=== PATIENT | male | born 1970 | race Caucasian/White ===

== ENCOUNTER 2019-02-18 06:23 | Inpatient (IN) | payer MEDICARE, MEDICAID ==
[~2019-02-18] VITALS: Ht 165.1 cm; Wt 53.7 kg
[2019-02-18] MEDS ORDERED: MVI, ADULT NO.4 WITH VIT K 10 ML, FOLIC ACID SYRINGE for ER 1 MG, THIAMINE INJ 100 MG i... IV ONE ×4 (06:45)
[2019-02-18] MEDS ORDERED: THIAMINE 200 MG/2 ML VIAL. IV ONE (07:15)
[2019-02-18] MEDS ORDERED: FOLIC ACID 5 MG/ML SYRINGE for ER IV ONE (07:15)
[2019-02-18 07:21] LABS: BASO % 0 % (0-3); EOS # 0.1 x10^3/uL (0.0-0.7); EOS % 2 % (0-3); HEMATOCRIT 24.3 % (39.0-53.0); HEMOGLOBIN 7.9 g/dL (13.0-17.5); LYMPH # 0.2 x10^3/uL (1.0-4.8); LYMPH % 5 % (24-48); MEAN CORPUSCULAR HEMOGLOBIN 31 pg (25-35); MEAN CORPUSCULAR HGB CONC 32 g/dL (31-37); MEAN CORPUSCULAR VOLUME 94 fL (79-100); MONO # 0.5 x10^3/uL (0.0-1.1); MONO % 10 % (0-9); NEUT # 3.9 x10^3uL (1.8-7.7); NEUT % 83 % (31-73); PLATELET COUNT 159 x10^3/uL (140-400); RED BLOOD COUNT 2.57 x10^6/uL (4.30-5.70); RED CELL DISTRIBUTION WIDTH 16.8 % (11.5-14.5); WHITE BLOOD COUNT 4.7 x10^3/uL (4.0-11.0)
[2019-02-18 07:44] LABS: ALBUMIN 2.9 g/dL (3.4-5.0); ALBUMIN/GLOBULIN RATIO 0.8 (1.0-1.7); CALCIUM 8.5 mg/dL (8.5-10.1); CREATININE 0.7 mg/dL (0.7-1.3); GFR 119.4; MAGNESIUM 1.7 mg/dL (1.8-2.4); POTASSIUM 4.3 mmol/L (3.5-5.1); TOTAL BILIRUBIN 1.8 mg/dL (0.2-1.0); TOTAL PROTEIN 6.7 g/dL (6.4-8.2)
[2019-02-18 07:46] LABS: BILIRUBIN,URINE NEG (NEG); CLARITY,URINE HAZY; COLOR,URINE YELLOW; GLUCOSE,URINE NEG (NEG)
[2019-02-18 07:47] LABS: BACTERIA,URINE 0 /HPF (0-FEW); BARBITURATES NEG (NEG); BENZODIAZEPINES NEG (NEG); CANNABINOIDS POS (NEG); COCAINE NEG (NEG); METHADONE NEG (NEG); NITRITE,URINE NEG (NEG); OPIATES NEG (NEG); PHENCYCLIDINE NEG (NEG); SQUAMOUS EPITHELIAL CELL,UR OCC /LPF; UROBILINOGEN,URINE 1 mg/dL (0.2 mg/dL); WBC,URINE OCC /HPF (0-4)
[2019-02-18 07:48] LABS: AMPHETAMINE/METHAMPHETAMINE NEG (NEG); HYALINE CASTS, URINE FEW /HPF
--- NOTE | 2019-02-18 07:54 | RAD ---
EXAM: CHEST ONE VIEW. HISTORY: Altered mental status. COMPARISON: None. FINDINGS: A frontal view of the chest is obtained. Opacity in the right base corresponds with a small pleural effusion along with atelectasis and infiltrate. There is no pneumothorax. The heart is not enlarged. IMPRESSION: 1. Right basilar atelectasis or pneumonia. Small right pleural effusion. Electronically signed by: Kendrick Lin MD (02/18/2019 7:51 AM) [facility]
[2019-02-18] MEDS ORDERED: LACTULOSE 20 GM/30 ML SOLUTION. PO ONE (08:45)
--- NOTE | 2019-02-18 08:45 | RAD ---
CT scan of the head without contrast 02/18/2019 Clinical History: Altered mental status. Technique: Unenhanced, contiguous, 5 mm axial sections were obtained through the head. One or more of the following individualized dose reduction techniques were utilized for this study: 1. Automated exposure control. 2. Adjustment of the mA and/or kV according to patient size. 3. Use of iterative reconstruction technique. Findings: Images from the study are degraded by patient motion. There is generalized parenchymal atrophy. Areas of decreased attenuation are seen within the periventricular and subcortical white matter of both cerebral hemispheres consistent with areas of small vessel ischemic disease. No acute parenchymal abnormality is seen. No extra-axial fluid collection is noted. No skull fracture is seen. Impression: No acute intracranial abnormality is seen. Electronically signed by: Myke Dial MD (02/18/2019 8:42 AM) [facility]
--- NOTE | 2019-02-18 08:48 | PHYS DOC ---
Past History Past Medical History: Other Additional Past Medical Histor: UNABLE TO ASSESS Past Surgical History: Other Additional Past Surgical Histo: UNABLE TO ASSESS Alcohol Use: None Drug Use: None Social History Narrative: UNABLE TO ASSESS Adult General Chief Complaint Chief Complaint: ALTERED MENTAL STATUS HPI HPI Patient is a 49-year-old male who arrives via EMS with report of altered mental status. Per EMS, patient's neighbor has heat to his place and was delivering mail when they found patient lying on the floor having defecated on the floor and being covered in his own feces. Patient is nonverbal at this time. No additional history obtainable at this time.[] Review of Systems Review of Systems Constitutional: No apparent fever[] Respiratory: No apparent shortness of breath [] Cardiovascular: No additional information not addressed in HPI [] Neurologic: Positive mental status changes [] Unable to fully assess review of systems as patient is nonverbal and unable to answer questions. Current Medications Current Medications Current Medications Medications (Trade) Dose Ordered Sig/Jazzmine Start Time Stop Time Status Last Admin Dose Admin Folic Acid (FOLIC ACID SYRINGE for ER) 5 mg STK-MED ONCE 02/18/19 07:15 02/18/19 07:15 DC Lactulose (Lactulose) 20 gm 1X ONCE 02/18/19 08:45 02/18/19 08:46 Lorazepam (Ativan Inj) 2 mg 1X ONCE 02/18/19 07:15 02/18/19 07:18 DC 02/18/19 07:10 2 MG Multivitamins/ Minerals 10 ml/ Folic Acid 1 mg/ Thiamine HCl 100 mg/Sodium Chloride 1,011.1 ml @ 1,000 mls/ hr 1X ONCE 02/18/19 06:45 02/18/19 07:45 DC 02/18/19 07:24 1,000 MLS/HR Thiamine HCl (Thiamine Vial) 200 mg STK-MED ONCE 02/18/19 07:15 02/18/19 07:15 DC Allergies Allergies Allergies Coded Allergies Type Severity Reaction Last Updated Verified Unable to Assess 02/18/19 No Physical Exam Physical Exam Constitutional: Mildly cachectic, no acute distress. [] HENT: Normocephalic, atraumatic, bilateral external ears normal, oropharynx dry, no oral exudates, nose normal. [] Eyes: PERRLA, EOMI, conjunctiva normal, no discharge. [] Neck: Normal range of motion, no apparent tenderness, supple, no stridor. [] Cardiovascular: Regular rate and rhythm[] Lungs & Thorax: Bilateral breath sounds clear to auscultation [] Abdomen: Bowel sounds normal, soft, no tenderness. [] Skin: Cool, dry, no erythema. [] Back: No obvious signs of external trauma. [] Extremities: No tenderness, no cyanosis, no clubbing, ROM intact. [] Neurologic: Somnolent but readily arousable with physical stimulation, patient moans but is nonverbal otherwise. Patient unable to follow commands. [] Current Patient Data Vital Signs Vital Signs Date Time Temp Pulse Resp B/P (MAP) Pulse Ox O2 Delivery O2 Flow Rate FiO2 02/18/19 06:47 93.9 87 18 100 Room Air Lab Results Laboratory Tests Test 02/18/19 06:54 02/18/19 07:05 02/18/19 07:39 White Blood Count 4.7 x10^3/uL (4.0-11.0) Red Blood Count 2.57 x10^6/uL (4.30-5.70) L Hemoglobin 7.9 g/dL (13.0-17.5) L Hematocrit 24.3 % (39.0-53.0) L Mean Corpuscular Volume 94 fL (79-100) Mean Corpuscular Hemoglobin 31 pg (25-35) Mean Corpuscular Hemoglobin Concent 32 g/dL (31-37) Red Cell Distribution Width 16.8 % (11.5-14.5) H Platelet Count 159 x10^3/uL (140-400) Neutrophils (%) (Auto) 83 % (31-73) H Lymphocytes (%) (Auto) 5 % (24-48) L Monocytes (%) (Auto) 10 % (0-9) H Eosinophils (%) (Auto) 2 % (0-3) Basophils (%) (Auto) 0 % (0-3) Neutrophils # (Auto) 3.9 x10^3uL (1.8-7.7) Lymphocytes # (Auto) 0.2 x10^3/uL (1.0-4.8) L Monocytes # (Auto) 0.5 x10^3/uL (0.0-1.1) Eosinophils # (Auto) 0.1 x10^3/uL (0.0-0.7) Basophils # (Auto) 0.0 x10^3/uL (0.0-0.2) Prothrombin Time 14.4 SEC (9.4-11.4) H Prothrombin Time INR 1.4 (0.9-1.1) H Sodium Level 144 mmol/L (136-145) Potassium Level 4.3 mmol/L (3.5-5.1) Chloride Level 110 mmol/L (98-107) H Carbon Dioxide Level 21 mmol/L (21-32) Anion Gap 13 (6-14) Blood Urea Nitrogen 13 mg/dL (8-26) Creatinine 0.7 mg/dL (0.7-1.3) Estimated GFR (Cockcroft-Gault) 119.4 BUN/Creatinine Ratio 19 (6-20) Glucose Level 180 mg/dL (70-99) H Lactic Acid Level 3.2 mmol/L (0.4-2.0) H Calcium Level 8.5 mg/dL (8.5-10.1) Magnesium Level 1.7 mg/dL (1.8-2.4) L Total Bilirubin 1.8 mg/dL (0.2-1.0) H Aspartate Amino Transferase (AST) 42 U/L (15-37) H Alanine Aminotransferase (ALT) 26 U/L (16-63) Alkaline Phosphatase 131 U/L (46-116) H Creatine Kinase 106 U/L (39-308) Troponin I Quantitative < 0.017 ng/mL (0-0.055) ZM-Vhc-H-Type Natriuretic Peptide 899 pg/mL (0-124) H Total Protein 6.7 g/dL (6.4-8.2) Albumin 2.9 g/dL (3.4-5.0) L Albumin/Globulin Ratio 0.8 (1.0-1.7) L Ethyl Alcohol Level < 10 mg/dL (0-10) Urine Collection Type U cath Urine Color Yellow Urine Clarity Hazy Urine pH 6.0 Urine Specific [place] 1.025 Urine Protein >100 mg/dl (NEG-TRACE) Urine Glucose (UA) Neg mg/dL (NEG) Urine Ketones (Stick) Trace mg/dL (NEG) Urine Blood Mod (NEG) Urine Nitrite Neg (NEG) Urine Bilirubin Neg (NEG) Urine Urobilinogen Dipstick 1 mg/dL (0.2 mg/dL) Urine Leukocyte Esterase Neg (NEG) Urine RBC 6-10 /HPF (0-2) Urine WBC Occ /HPF (0-4) Urine Squamous Epithelial Cells Occ /LPF Urine Bacteria 0 /HPF (0-FEW) Urine Hyaline Casts Few /HPF Urine Mucus Mod /LPF Urine Opiates Screen Neg (NEG) Urine Methadone Screen Neg (NEG) Urine Barbiturates Neg (NEG) Urine Phencyclidine Screen Neg (NEG) Urine Amphetamine/Methamphetamine Neg (NEG) Urine Benzodiazepines Screen Neg (NEG) Urine Cocaine Screen Neg (NEG) Urine Cannabinoids Screen Pos (NEG) Urine Ethyl Alcohol Neg (NEG) Ammonia 140 mcmol/L (11-34) H EKG EKG [] Radiology/Procedures Radiology/Procedures [] Impressions: PROCEDURE: PORTABLE CHEST 1V EXAM: CHEST ONE VIEW. HISTORY: Altered mental status. COMPARISON: None. FINDINGS: A frontal view of the chest is obtained. Opacity in the right base corresponds with a small pleural effusion along with atelectasis and infiltrate. There is no pneumothorax. The heart is not enlarged. IMPRESSION: 1. Right basilar atelectasis or pneumonia. Small right pleural effusion. Electronically signed by: Kendrick Lin MD (02/18/2019 7:51 AM) [facility] DICTATED AND SIGNED BY: ILIANA LIN MD DATE: 02/18/19 0751 CC: MARITZA MCGUIRE Jr. DO; PCP,NO ~ PROCEDURE: CT HEAD WO CONTRAST CT scan of the head without contrast 02/18/2019 Clinical History: Altered mental status. Technique: Unenhanced, contiguous, 5 mm axial sections were obtained through the head. One or more of the following individualized dose reduction techniques were utilized for this study: 1. Automated exposure control. 2. Adjustment of the mA and/or kV according to patient size. 3. Use of iterative reconstruction technique. Findings: Images from the study are degraded by patient motion. There is generalized parenchymal atrophy. Areas of decreased attenuation are seen within the periventricular and subcortical white matter of both cerebral hemispheres consistent with areas of small vessel ischemic disease. No acute parenchymal abnormality is seen. No extra-axial fluid collection is noted. No skull fracture is seen. Impression: No acute intracranial abnormality is seen. Electronically signed by: Myke Dial MD (02/18/2019 8:42 AM) [facility] Course & Med Decision Making Course & Med Decision Making Pertinent Labs and Imaging studies reviewed. (See chart for details) [] Dragon Disclaimer Dragon Disclaimer This electronic medical record was generated, in whole or in part, using a voice recognition dictation system. Departure Departure: Impression: Primary Impression: Hepatic encephalopathy Disposition: 01 HOME, SELF-CARE Admitting Physician: Merry Garcia Condition: IMPROVED Referrals: PCP,NO (PCP) MARITZA MCGUIRE Jr. DO Feb 18, 2019 08:47
[2019-02-18] MEDS ORDERED: ONDANSETRON PF 4 MG/2 ML VIAL. IV PRN (09:00)
[2019-02-18] MEDS: IV NORMAL SALINE 1,000ML 1,000 ML IV SCH ×2 (09:50→17:31)
[2019-02-18 10:40] VITALS: BP 142/80
[2019-02-18] MEDS ORDERED: C.DIFF MED SCREEN BY RX. MC ONE (12:15)
[2019-02-18] MEDS ORDERED: Influenza vaccine per PROTOCOL. MC ONE (12:15)
[2019-02-18 15:27] VITALS: BP 141/79
[2019-02-18] MEDS: LACTULOSE 20 GM/30 ML SOLUTION. PO SCH ×3 (15:30→23:40)
--- NOTE | 2019-02-18 16:04 | HP ---
ADMIT DATE: 02/18/2019 HISTORY OF PRESENT ILLNESS: The patient is a 49-year-old male patient who was brought to the Emergency Room apparently altered mental status, apparently he is known to have alcoholic liver cirrhosis and was found to have markedly elevated ammonia and was admitted for further evaluation and treatment. When I saw him, he was able to open his eyes and seemed to understand that if he is not able to swallow his lactulose, then have to put an NG tube and treat him that way. PAST MEDICAL HISTORY: Significant for hypertension, type 2 diabetes and liver cirrhosis. PAST SURGICAL HISTORY: Significant for cystoscopy, left retrograde pyelography and left ureteroscopy and holmium laser lithotripsy and stone extraction and left ureteral stent placement. ALLERGIES: The patient has no known drug allergies. MEDICATIONS: Supposed to be on Xifaxan, Coreg, Lasix, metformin, lactulose, Lantus insulin, folic acid, Protonix, glipizide, spironolactone, and testosterone. FAMILY HISTORY: Unobtainable. SOCIAL HISTORY: Unobtainable at least for the time being. PHYSICAL EXAMINATION: GENERAL: On arrival to the Emergency Room, the patient was clearly encephalopathic, does open his eyes and drifts back to sleep. He was jaundiced, pale, not cyanosed. No lymphadenopathy, no thyromegaly. No jugular venous distention. No lower limb edema. VITAL SIGNS: His heart rate was 109, blood pressure 142/80, temperature was 98, respiratory rate was 16, and oxygen saturation was 95% on room air. HEAD, EYES, EARS, NOSE AND THROAT: Showed normocephalic, atraumatic. NECK: Supple. HEART: Showed normal first and second heart sounds with no gallop or murmur. CHEST: Clear to auscultation. No crepitation or rhonchi. ABDOMEN: Distended, soft, nontender. No guarding or rigidity. No organomegaly. All hernial orifice intact. Bowel sounds normal. NEUROLOGIC: He was encephalopathic, does open his eyes, mouthed some words and drifts back to sleep. Grossly he seems to be neurologically intact. All cranial nerves are normal. EXTREMITIES: He moves extremities spontaneously. LABORATORY DATA: On admission showed a serum sodium 144, potassium 4.3, chloride 110, bicarbonate 21, anion gap of 13, BUN 13, creatinine 0.7, estimated GFR was 119 mL per minute. His glucose was 180, calcium was 8.5, magnesium was 1.7. Total bilirubin 1.8. AST, alkaline phosphatase slightly elevated. ALT is normal. CK was only 6. Total beta natriuretic peptide was 899. Total protein was 6.7, albumin was 2.9. His lactic acid initially was 3.2. His ammonia was high at 140. His prothrombin time was 14.4, INR 1.4. White cell count was 4700, hemoglobin 7.9, hematocrit 24.3, MCV 94 and platelet count of 159,000 with normal manual differential. Urinalysis was essentially unremarkable. Toxic screen was positive for cannabinoids. He has had a chest x-ray which basically showed that he has right basilar atelectasis or pneumonia, small right-sided pleural effusion; however, there is no pneumothorax. The heart is not enlarged. His CT scan of the head showed that there is generalized parenchymal atrophy, areas of decreased attenuation are seen within the periventricular and subcortical white matter of both cerebral hemispheres consistent with area of small vessel ischemic disease, no acute parenchymal abnormality seen. No extra fluid collection is noted. No skull fracture is seen. PLAN: To basically start him on rifaximin as well as lactulose at 45 mL every 4 hours. If he is unable to swallow the lactulose, we will have to put an NG tube and perhaps with wrist restraints. Once he wakes up and is able to swallow, we can switch him to oral medication. YISSEL DE LA CRUZ MD DR: ANTONIA/brooke JOB#: [id number] / [id number]
[2019-02-18] MEDS ORDERED: DEXTROSE 50% 25 GM / 50ML DISP.SYRIN. IV PRN (16:45)
[2019-02-18] MEDS: INSULIN LISPRO 300 UNITS/3 ML VIAL. SQ SCH (17:00)
[2019-02-18 19:13] VITALS: BP 142/81
[2019-02-18] MEDS: rifAXIMin 550 MG TABLET PO SCH (20:01)
[2019-02-18 22:24] VITALS: BP 138/77
[2019-02-19] VITALS (8 sets, daily range): BP systolic 124–163; BP diastolic 70–82
[2019-02-19] MEDS: IV NORMAL SALINE 1,000ML 1,000 ML IV SCH (03:19)
[2019-02-19] MEDS: LACTULOSE 20 GM/30 ML SOLUTION. PO SCH ×4 (03:20→15:30)
[2019-02-19 06:28] LABS: BASO % 1 % (0-3); EOS # 0.1 x10^3/uL (0.0-0.7); EOS % 3 % (0-3); HEMATOCRIT 20.3 % (39.0-53.0); LYMPH # 0.2 x10^3/uL (1.0-4.8); LYMPH % 6 % (24-48); MEAN CORPUSCULAR HEMOGLOBIN 31 pg (25-35); MEAN CORPUSCULAR HGB CONC 33 g/dL (31-37); MEAN CORPUSCULAR VOLUME 93 fL (79-100); MONO # 0.4 x10^3/uL (0.0-1.1); MONO % 10 % (0-9); NEUT % 80 % (31-73); PLATELET COUNT 134 x10^3/uL (140-400); RED BLOOD COUNT 2.17 x10^6/uL (4.30-5.70); RED CELL DISTRIBUTION WIDTH 16.4 % (11.5-14.5); WHITE BLOOD COUNT 3.8 x10^3/uL (4.0-11.0)
[2019-02-19 06:44] LABS: HEMOGLOBIN 6.7 g/dL (13.0-17.5)
[2019-02-19 06:45] LABS: ALBUMIN/GLOBULIN RATIO 0.6 (1.0-1.7); CALCIUM 7.7 mg/dL (8.5-10.1); CREATININE 0.7 mg/dL (0.7-1.3); GFR 119.4; POTASSIUM 3.1 mmol/L (3.5-5.1); TOTAL BILIRUBIN 1.5 mg/dL (0.2-1.0); TOTAL PROTEIN 5.4 g/dL (6.4-8.2)
[2019-02-19] MEDS ORDERED: ACETAMINOPHEN 500 MG TABLET PO PRN (07:00)
[2019-02-19] MEDS ORDERED: diphenhydrAMINE HCL 25 MG CAPSULE PO PRN (07:00)
[2019-02-19] MEDS: INSULIN LISPRO 300 UNITS/3 ML VIAL. SQ SCH ×3 (08:00→17:13)
[2019-02-19] MEDS: rifAXIMin 550 MG TABLET PO SCH ×2 (09:12→20:44)
[2019-02-19] MEDS ORDERED: LIDOCAINE (700MG/PATCH) PATCH. TD SCH (11:15)
[2019-02-19 13:39] LABS: HEMATOCRIT 26.1 % (39.0-53.0); RED BLOOD COUNT 2.84 x10^6/uL (4.30-5.70); RED CELL DISTRIBUTION WIDTH 17.4 % (11.5-14.5); WHITE BLOOD COUNT 4.1 x10^3/uL (4.0-11.0)
[2019-02-19 13:40] LABS: HEMOGLOBIN 8.5 g/dL (13.0-17.5)
[2019-02-19] MEDS ORDERED: POTASSIUM CHLORIDE 20 MEQ TABLET.ER. PO ONE (18:30)
[2019-02-19] MEDS ORDERED: PATCH REMOVAL. MC SCH (21:00)
[2019-02-19] MEDS ORDERED: LACTOBACILLUS RHAMNOSUS GG 1 CAPSULE. PO SCH (21:00)
[2019-02-19] MEDS ORDERED: LACTULOSE 20 GM/30 ML SOLUTION. PO SCH (21:30)
[2019-02-20] MEDS ORDERED: POTASSIUM CHLORIDE 20 MEQ TABLET.ER. PO ONE (08:00)
== END 2019-02-19 22:27 | disposition hospice, home (50) | DRG 441 ==
LOC: EDBD 06:23 → ER 06:23 → 1 SOUTH 10:26
PROVIDERS: ADMIT Internal Medicine; ATTEND Internal Medicine
PROC: 30233N1 Transfusion of Nonautologous Red Blood Cells into Peripheral Vein, Percutaneous Approach (ICD-10-PCS; principal; 2019-02-18)
DX: K72.90 Hepatic failure, unspecified without coma (principal); G93.41 Metabolic encephalopathy; E43 Unspecified severe protein-calorie malnutrition; Z68.1 Body mass index [BMI] 19.9 or less, adult; D64.89 Other specified anemias; K70.30 Alcoholic cirrhosis of liver without ascites; I10 Essential (primary) hypertension; E11.9 Type 2 diabetes mellitus without complications
CPT/HCPCS: 36415; 51702; 70450; 71045; 80053; 80307; 81001; 82140; 82550; 82947; 83605; 83735; 83880; 84484; 85025; 85027; 85610; 86850; 86900; 86901; 86920; 87040; 96365; 96375; G0480; J1815; J2060; P9016; Q0163; 99285-25; J7030